=== PATIENT | male | born 1955 | race Caucasian/White ===

== ENCOUNTER 2018-10-23 07:52 | Emergency (ER) | payer MEDICARE ==
[2018-10-23] MEDS ORDERED: Sodium Chloride 0.9% 10 ML Syringe FLUSH PRN (07:54)
--- NOTE | 2018-10-23 08:01 | EDM.PDOC ---
ED HPI GENERAL MEDICAL PROBLEM - General Chief Complaint: Respiratory Problem Stated Complaint: BREATHING ISSUES Time Seen by Provider: 10/23/18 07:54 Source of Information: Reports: Patient, EMS, RN Notes Reviewed History Limitations: Reports: Respiratory Distress - History of Present Illness INITIAL COMMENTS - FREE TEXT/NARRATIVE: 63-year-old gentleman presents to the emergency department today via EMS services, complaint of shortness of breath, he states he was getting up early this morning to go fishing does have a known history of CHF as well as asthma. States he normally feels some shortness of breath however today sudden onset of shortness of breath did try his albuterol inhaler with minimal relief felt like he was going to . EMS services were called they did provide him a DuoNeb with minimal relief EMS tried 3 sprays of nitroglycerin placed on CPAP. On initial assessment he was speaking in one-word sentences however by the time he arrives to the emergency department he is able to communicate normally. Due to his location he was approximately one hour out has been on CPAP for an hour states he feels significantly better and is able to breathe much better than this morning. Does have a history coronary artery disease with stenting as well. - Related Data Allergies Allergy/AdvReac Type Severity Reaction Status Date / Time No Known Allergies Allergy Verified 10/23/18 07:55 Home Meds: Home Meds Albuterol [Ventolin HFA] 1 puff .XX ASDIRECTED 10/23/18 [History] Aspirin [Halfprin] 81 mg PO DAILY 10/23/18 [History] Carvedilol 3.125 mg PO DAILY 10/23/18 [History] Clopidogrel [Plavix] 75 mg PO DAILY 10/23/18 [History] Losartan [Cozaar] 25 mg PO DAILY 10/23/18 [History] atorvaSTATin [Lipitor] 80 mg PO BEDTIME 10/23/18 [History] predniSONE 10 mg PO DAILY 10/23/18 [History] Past Medical History Cardiovascular History: Reports: CAD, Heart Failure, High Cholesterol, Hypertension, Stents (2012) Respiratory History: Reports: Asthma Social & Family History - Tobacco Use Smoking Status *Q: Former Smoker ED ROS GENERAL - Review of Systems Review Of Systems: See Below Constitutional: Denies: Fever, Chills HEENT: Reports: No Symptoms Respiratory: Reports: Shortness of Breath, Wheezing, Cough, Sputum Cardiovascular: Reports: Dyspnea on Exertion GI/Abdominal: Reports: No Symptoms ED EXAM, GENERAL - Physical Exam Exam: See Below Exam Limited By: Respiratory Distress General Appearance: Alert, Mild Distress Neck: Normal Inspection, Supple, Non-Tender, Full Range of Motion Respiratory/Chest: Respiratory Distress, Decreased Breath Sounds, Rhonchi, Wheezing Cardiovascular: Regular Rate, Rhythm, No Murmur Course - Vital Signs Last Recorded V/S: Last Vital Signs Temp 95.9 F 10/23/18 08:13 Pulse 89 10/23/18 08:13 Resp 26 H 10/23/18 08:08 BP 105/69 10/23/18 08:13 Pulse Ox 92 L 10/23/18 08:13 - Orders/Labs/Meds Orders: Active Orders 24 hr Category Date Time Status Cardiac Monitoring [RC] .As Directed Care 10/23/18 07:55 Active Communication Order [RC] Per Unit Routine Care 10/23/18 11:34 Active Communication Order [RC] Per Unit Routine Care 10/23/18 11:34 Active EKG Documentation Completion [RC] ASDIRECTED Care 10/23/18 07:55 Active Heparin Sodium/D5W [Heparin 25,000 Units in D5W 500 ML] Med 10/23/18 11:45 Active 25,000 units in 500 ml IV TITRATE Sodium Chloride 0.9% [Saline Flush] Med 10/23/18 07:54 Active 10 ml FLUSH ASDIRECTED PRN Saline Lock Insert [OM.PC] Stat Oth 10/23/18 07:54 Ordered EKG 12 Lead [EK] Stat Ther 10/23/18 07:55 Ordered Medication Orders Heparin Sodium/Dextrose (Heparin 25,000 Units In D5w 500 Ml) 25,000 units in 500 mls @ 20.14 mls/hr IV TITRATE RODNEY; Protocol Last Admin: 10/23/18 11:46 Dose: 12 units/kg/hr, 20.14 mls/hr Sodium Chloride (Saline Flush) 10 ml FLUSH ASDIRECTED PRN PRN Reason: Keep Vein Open Last Admin: 10/23/18 08:16 Dose: 10 ml Labs: Laboratory Tests 10/23/18 10/23/18 10/23/18 Range/Units 07:56 08:13 08:13 WBC 9.6 (4.5-11.0) K/uL RBC 5.11 (4.30-5.90) M/uL Hgb 16.0 H (12.0-15.0) g/dL Hct 47.9 (40.0-54.0) % MCV 94 (80-98) fL MCH 31 (27-31) pg MCHC 33 (32-36) % Plt Count 201 (150-400) K/uL Neut % (Auto) 83 H (36-66) % Lymph % (Auto) 4 L (24-44) % Rosebud % (Auto) 11 H (2-6) % Eos % (Auto) 2 (2-4) % Baso % (Auto) 0 (0-1) % PT (9.5-12.0) sec INR (0.80-1.20) APTT (27.0-36.0) sec D-Dimer, Quantitative 775 H (0.0-400.0) ng/mL Puncture Site Rt radial ABG pH 7.430 (7.350-7.450) ABG pCO2 36.6 (35.0-42.0) mmHg ABG pO2 79.0 (75.0-100.0) mmHg ABG HCO3 23.9 (22.0-26.0) mmol/L ABG Total CO2 20.1 L (23.0-27.0) mmol/L ABG O2 Saturation 95.9 (95.0-98.0) % ABG O2 Content 21.7 (15.0-23.0) %vol ABG Base Excess 0.5 mm/L ABG Hemoglobin 16.6 (13.5-18.0) g/dL ABG Oxyhemoglobin 93.4 % ABG Carboxyhemoglobin 1.9 H (0.0-1.6) % ABG Methemoglobin 0.7 % Shahbaz Test Passed O2 Delivery Device Room air Oxygen Flow Rate L Sodium (140-148) mmol/L Potassium (3.6-5.2) mmol/L Chloride (100-108) mmol/L Carbon Dioxide (21-32) mmol/L Anion Gap (5.0-14.0) mmol/L BUN (7-18) mg/dL Creatinine (0.8-1.3) mg/dL Est Cr Clr Drug Dosing mL/min Estimated GFR (MDRD) (>60) Glucose (74-106) mg/dL Calcium (8.5-10.1) mg/dL Total Bilirubin (0.2-1.0) mg/dL AST (15-37) U/L ALT (12-78) U/L Alkaline Phosphatase (46-116) U/L CK-MB (CK-2) (0-3.6) mg/mL Troponin I (0.000-0.056) ng/mL NT-Pro-B Natriuret Pep (5-125) pg/mL Total Protein (6.4-8.2) g/dL Albumin (3.4-5.0) g/dL Globulin (2.3-3.5) g/dL Albumin/Globulin Ratio (1.2-2.2) 10/23/18 10/23/18 10/23/18 Range/Units 08:13 10:55 11:34 WBC (4.5-11.0) K/uL RBC (4.30-5.90) M/uL Hgb (12.0-15.0) g/dL Hct (40.0-54.0) % MCV (80-98) fL MCH (27-31) pg MCHC (32-36) % Plt Count (150-400) K/uL Neut % (Auto) (36-66) % Lymph % (Auto) (24-44) % Rosebud % (Auto) (2-6) % Eos % (Auto) (2-4) % Baso % (Auto) (0-1) % PT 12.0 (9.5-12.0) sec INR 1.12 (0.80-1.20) APTT 25.2 L (27.0-36.0) sec D-Dimer, Quantitative (0.0-400.0) ng/mL Puncture Site ABG pH (7.350-7.450) ABG pCO2 (35.0-42.0) mmHg ABG pO2 (75.0-100.0) mmHg ABG HCO3 (22.0-26.0) mmol/L ABG Total CO2 (23.0-27.0) mmol/L ABG O2 Saturation (95.0-98.0) % ABG O2 Content (15.0-23.0) %vol ABG Base Excess mm/L ABG Hemoglobin (13.5-18.0) g/dL ABG Oxyhemoglobin % ABG Carboxyhemoglobin (0.0-1.6) % ABG Methemoglobin % Shahbaz Test O2 Delivery Device Oxygen Flow Rate L Sodium 141 (140-148) mmol/L Potassium 3.8 (3.6-5.2) mmol/L Chloride 106 (100-108) mmol/L Carbon Dioxide 26 (21-32) mmol/L Anion Gap 9.5 (5.0-14.0) mmol/L BUN 24 H (7-18) mg/dL Creatinine 0.9 (0.8-1.3) mg/dL Est Cr Clr Drug Dosing 86.74 mL/min Estimated GFR (MDRD) > 60 (>60) Glucose 126 H (74-106) mg/dL Calcium 8.5 (8.5-10.1) mg/dL Total Bilirubin 1.0 (0.2-1.0) mg/dL AST 19 (15-37) U/L ALT 27 (12-78) U/L Alkaline Phosphatase 88 (46-116) U/L CK-MB (CK-2) 1.9 (0-3.6) mg/mL Troponin I 0.054 0.122 H* (0.000-0.056) ng/mL NT-Pro-B Natriuret Pep 1363 H (5-125) pg/mL Total Protein 6.5 (6.4-8.2) g/dL Albumin 3.4 (3.4-5.0) g/dL Globulin 3.1 (2.3-3.5) g/dL Albumin/Globulin Ratio 1.1 L (1.2-2.2) Meds: Medications Generic Name Dose Route Start Last Admin Trade Name Freq PRN Reason Stop Dose Admin Heparin Sodium/Dextrose 25,000 units in 500 mls @ 20.14 mls/hr 10/23/18 11:45 10/23/18 11:46 Heparin 25,000 Units In D5w 500 Ml IV 12 units/kg/hr TITRATE RODNEY 20.14 mls/hr Administration Protocol 12 UNITS/KG/HR Sodium Chloride 10 ml 10/23/18 07:54 10/23/18 08:16 Saline Flush FLUSH 10 ml ASDIRECTED PRN Administration Keep Vein Open Discontinued Medications Generic Name Dose Route Start Last Admin Trade Name Freq PRN Reason Stop Dose Admin Aspirin 324 mg 10/23/18 11:34 10/23/18 11:41 Aspirin PO 10/23/18 11:35 324 mg ONETIME ONE Administration Clopidogrel Bisulfate 300 mg 10/23/18 11:34 10/23/18 11:43 Plavix PO 10/23/18 11:35 300 mg ONETIME ONE Administration Heparin Sodium (Porcine) 4,000 units 10/23/18 11:34 10/23/18 11:44 Heparin Sodium IVPUSH 10/23/18 11:35 4,000 units ONETIME ONE Administration - Re-Assessments/Exams Free Text/Narrative Re-Assessment/Exam: 10/23/18 09:42 After his breathing has settled down of CPAP he is able to communicate and give a bit more history. He states this morning when he became very short of breath he was nauseated was diaphoretic denies any chest pain or pressure. States this event felt different than his prior myocardial infarction Departure - Departure Time of Disposition: 12:26 Disposition: DC/Tfer to Acute Hospital 02 Condition: Fair Clinical Impression: NSTEMI (non-ST elevated myocardial infarction) - Discharge Information Referrals: PCP,None [Primary Care Provider] - Forms: ED Department Discharge - My Orders Last 24 Hours: My Active Orders 10/23/18 07:54 Sodium Chloride 0.9% [Saline Flush] 10 ml FLUSH ASDIRECTED PRN Saline Lock Insert [OM.PC] Stat 10/23/18 07:55 Cardiac Monitoring [RC] .As Directed EKG Documentation Completion [RC] ASDIRECTED EKG 12 Lead [EK] Stat 10/23/18 11:34 Communication Order [RC] Per Unit Routine Communication Order [RC] Per Unit Routine 10/23/18 11:45 Heparin Sodium/D5W [Heparin 25,000 Units in D5W 500 ML] 25,000 units in 500 ml IV TITRATE - Assessment/Plan Last 24 Hours: My Active Orders 10/23/18 07:54 Sodium Chloride 0.9% [Saline Flush] 10 ml FLUSH ASDIRECTED PRN Saline Lock Insert [OM.PC] Stat 10/23/18 07:55 Cardiac Monitoring [RC] .As Directed EKG Documentation Completion [RC] ASDIRECTED EKG 12 Lead [EK] Stat 10/23/18 11:34 Communication Order [RC] Per Unit Routine Communication Order [RC] Per Unit Routine 10/23/18 11:45 Heparin Sodium/D5W [Heparin 25,000 Units in D5W 500 ML] 25,000 units in 500 ml IV TITRATE Plan: Assessment Acuity = acute Site and laterality = non-ST elevation myocardial infarction complicated in a gentleman with known history of congestive heart failure as well as AICD placement and asthma moderate persistent Etiology = probable coronary artery disease Manifestations = dyspnea, nausea, diaphoresis Location of injury = Home Lab values = CBC unremarkable , ABG reveals pH is 7.43 PCO2 36.6 PO2 of 79 and bicarbonate 20.1 CMP unremarkable initial troponin wasn't normal limits 0.054 however 3 hours later elevated to 0.122 BNP slightly elevated 1367 consistent with fluid overload type pattern I do not have a baseline number, chest x-ray shows pulmonary edema no cardiomegaly, EKG demonstrates a paced rhythm Plan Called and discussed the case with Dr. Lino hospitalist and Dr. Vasquez cardiology [facility] at 1220 kindly accepted the patient in transport thus far he has received aspirin, 300 mg Plavix heparin bolus of 4000 units and started on a heparin drip he will be transported via EMS ground This note was dictated using [employer] voice recognition software please call with any questions on syntax or grammar.
--- NOTE | 2018-10-23 09:53 | CR ---
CHEST: Portable CLINICAL HISTORY:Chest pain COMPARISON:None FINDINGS: Heart size is upper limits of normal. Patient is a permanent cardiac pacer/defibrillator. Pulmonary vascularity appears cephalized. There are bilateral pulmonary infiltrates most prominent in the perihilar regions. There is some scarring atelectasis on underlying COPD Impression: Bilateral infiltrates most likely pulmonary edema superimposed over COPD. The bilateral pneumonia is not excluded Permanent cardiac pacer/defibrillator Upright two-view chest is recommended when patient's condition allows.
[2018-10-23] MEDS ORDERED: Aspirin 81 MG Tab.Chew PO ONE (11:34)
[2018-10-23] MEDS ORDERED: Clopidogrel 75 MG Tab PO ONE (11:34)
[2018-10-23] MEDS ORDERED: Heparin Sodium 5,000 Units/ML Vial IVPUSH ONE (11:34)
[2018-10-23] MEDS ORDERED: Heparin Sodium/D5W 25,000 UNITS/500 ML BAG IV SCH (11:45)
== END 2018-10-23 14:30 ==
LOC: EDBD 07:52 → JP.ED 07:52
DX: I21.4 Non-ST elevation (NSTEMI) myocardial infarction (principal); Z87.891 Personal history of nicotine dependence; Z79.899 Other long term (current) drug therapy; E78.00 Pure hypercholesterolemia, unspecified; I11.0 Hypertensive heart disease with heart failure; I50.9 Heart failure, unspecified; J45.909 Unspecified asthma, uncomplicated; Z79.51 Long term (current) use of inhaled steroids; Z79.82 Long term (current) use of aspirin
CPT/HCPCS: 36415; 36600; 71045; 80053; 82553; 82803; 83880; 84484; 85025; 85379; 85610; 85730; 93005; 96365; 99285; A9270; J1644